=== PATIENT | female | born 1995 | race Hispanic/Latino ===

== ENCOUNTER 2024-05-19 13:41 | Emergency (ER) | payer OTHER ==
[2024-05-19 14:52] LABS: Absolute Eosinophils 0.2 K/uL (0-0.5); Absolute Lymphocytes (CBC) 1.9 K/uL (0.7-4.9); Absolute Monocytes 0.7 K/uL (0.1-1.3); Absolute Neutrophil 2.3 K/uL (1.8-8.0); Basophils % 0.6 % (0-1.3); Hemoglobin 12.6 g/dL (12.0-15.0); Lymphocytes % 37.3 % (15.3-44.8); MCH 29.8 pg (27.0-35.0); MCHC 33.1 g/dL (32.0-36.0); MPV 8.5 fL (7.6-11.3); Neutrophils % 45.1 % (41.7-73.7); Platelets 347 thou/uL (152-406); RBC Red Blood Cell Count 4.22 M/uL (3.86-4.86); Red Cell Distribution Width 13.2 % (12.1-15.2)
[2024-05-19 15:03] LABS: Specific Gravity 1.032 (1.005-1.030)
[2024-05-19 15:05] LABS: Specific Gravity > 1.030 (1.005-1.030); Urine Bacteria <20 /HPF (<20); Urine Bilirubin NEGATIVE (Negative); Urine Blood 2+ (Negative); Urine Clarity Turbid (Clear); Urine Color Yellow (Yellow); Urine Culture Reflex Order NOT NEEDED; Urine Glucose NEGATIVE (Negative); Urine Ketones NEGATIVE (Negative); Urine Micro Reflex YN NO BILL MICROSCOPIC; Urine Mucus 4+ /HPF (None Seen); Urine Nitrite NEGATIVE (Negative); Urine Protein TRACE (Negative); Urine RBC <5 /HPF (None Seen); Urine Urobilinogen Normal (Normal); Urine WBC <5 /HPF (<5)
[2024-05-19 15:13] LABS: Anion Gap 5.2 mEq/L (5.0-15.0); Potassium 4.2 mEq/L (3.5-5.1)
--- NOTE | 2024-05-19 15:16 | RAD REPORT ---
EXAM: Transvaginal OB HISTORY: ABD PAIN COMPARISON: None TECHNIQUE: Multiple grayscale and color Doppler images were obtained in a transvaginal pelvic ultraso und. Spectral analysis of the Doppler waveforms of the ovaries were performed. FINDINGS: UTERUS: Tiny cystic structure located eccentrically in the endometrium measuring 2 mm. No pole or yolk sac. No free fluid is seen in the pelvis. RIGHT OVARY: 3 cm simple appearing cyst in the right ovary. Vascular flow is present. The right ovary is enlarged as a result of the cyst. LEFT OVARY: Normal flow without focal mass. IMPRESSION: Tiny 2 mm intrauterine saclike structure is indeterminate. This could represent a normal first trimes ter however short-term follow-up ultrasound and correlation with beta hCG is recommended. Bilateral ovarian blood flow.
--- NOTE | 2024-05-19 15:42 | EDPHYS ---
Physician Documentation [facility] Name: Sabrina Rosado Age: 28 yrs Sex: Female : 1995 Arrival Date: 05/19/2024 Time: 13:41 Bed 16 Private MD: ED Physician Danielle Celestin HPI: 05/19 14:42 This 28 yrs old Female presents to ER via Ambulatory with complaints of sp3 Vaginal Bleeding. 14:42 Four 8-year-old female presents with continued vaginal bleeding since April 29 on sp3 her last period and right-sided abdominal pain. She denies . She denies any other medical history. Review of systems negative for bleeding anywhere else, headache, chest pain, shortness of breath, abdominal pain, vomiting, diarrhea, rash, or any other signs or symptoms on ROS at this time.. 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 - Infectious Disease History:: Denies. - Social history:: Smoking status: Patient denies any tobacco usage or history of. ROS: 14:42 Constitutional: Negative for fever, chills, and weight loss, Eyes: Negative for injury, sp3 pain, redness, and discharge, ENT: Negative for injury, pain, and discharge, Neck: Negative for injury, pain, and swelling, Cardiovascular: Negative for chest pain, palpitations, and edema, Respiratory: Negative for shortness of breath, cough, wheezing, and pleuritic chest pain, Back: Negative for injury and pain, MS/Extremity: Negative for injury and deformity, Skin: Negative for injury, rash, and discoloration, Neuro: Negative for headache, weakness, numbness, tingling, and seizure, Psych: Negative for depression, anxiety, suicide ideation, homicidal ideation, and hallucinations, Allergy/Immunology: Negative for hives, rash, and allergies, Endocrine: Negative for neck swelling, polydipsia, polyuria, polyphagia, and marked weight changes, Hematologic/Lymphatic: Negative for swollen nodes, abnormal bleeding, and unusual bruising, 14:42 All other systems are negative, Exam: 14:42 Constitutional: This is a well developed, well nourished patient who is awake, alert, sp3 and in no acute distress. Head/Face: Normocephalic, atraumatic. Eyes: Pupils equal round and reactive to light, extra-ocular motions intact. Lids and lashes normal. Conjunctiva and sclera are non-icteric and not injected. Cornea within normal limits. Periorbital areas with no swelling, redness, or edema. Neck: Trachea midline, no thyromegaly or masses palpated, and no cervical lymphadenopathy. Supple, full range of motion without nuchal rigidity, or vertebral point tenderness. No Meningismus. Chest/axilla: Normal chest wall appearance and motion. Nontender with no deformity. No lesions are appreciated. Cardiovascular: Regular rate and rhythm with a normal S1 and S2. No gallops, murmurs, or rubs. Normal PMI, no JVD. No pulse deficits. Respiratory: Lungs have equal breath sounds bilaterally, clear to auscultation and percussion. No rales, rhonchi or wheezes noted. No increased work of breathing, no retractions or nasal flaring. Back: No spinal tenderness. No costovertebral tenderness. Full range of motion. Skin: Warm, dry with normal turgor. Normal color with no rashes, no lesions, and no evidence of cellulitis. MS/ Extremity: Pulses equal, no cyanosis. Neurovascular intact. Full, normal range of motion. Neuro: Awake and alert, GCS 15, oriented to person, place, time, and situation. Cranial nerves II-XII grossly intact. Motor strength 5/5 in all extremities. Sensory grossly intact. Cerebellar exam normal. Normal gait. Psych: Awake, alert, with orientation to person, place and time. Behavior, mood, and affect are within normal limits. 14:42 Abdomen/GI: Right lower quadrant abdominal pain to palpation with vaginal bleeding consistent with menses., Vital Signs: 14:05 Pulse 84; Resp 17; Temp 97.3; Pulse Ox 100% ; Weight 80.74 kg; Pain 0/10; ll1 15:00 BP 124 / 72; Pulse 68; Resp 18; Pulse Ox 100% on R/A; kj2 16:00 BP 123 / 78; Pulse 80; Resp 20; Temp 98; Pulse Ox 100% on R/A; kj2 14:05 Pain Scale: Adult ll1 MDM: 14:02 Medical Screening Exam initiated sp3 14:43 Data reviewed: vital signs, nurses notes, lab test result(s), radiologic studies. ED sp3 course: 28-year-old female with right lower quadrant abdominal pain and vaginal bleeding. Differential diagnosis includes and related pathology including ectopic if positive, other ovarian pathology, metromenorrhagia, or other GI pathology although I am not highly suspicious of this. Workup will include ultrasound pelvic transvaginal, test and general labs. If workup negative patient to follow-up with PCP and/or STOCK PREPARER.. 15:39 ED course: Full workup negative including US and labs. Will d/c home with STOCK PREPARER sp3 follow-up. . 05/19 14:06 Order name: UAM; Complete Time: 15:28 sp3 05/19 14:06 Order name: HCG-Quantitative; Complete Time: 15:28 sp3 05/19 14:08 Order name: Test, Urine; Complete Time: 15:28 sp3 05/19 14:12 Order name: Basic Metabolic Panel; Complete Time: 15:28 sp3 05/19 14:12 Order name: CBC with Diff; Complete Time: 15:28 sp3 05/19 14:12 Order name: US Transvaginal Ob; Complete Time: 15:28 sp3 05/19 14:12 Order name: IV Saline Lock; Complete Time: 16:11 sp3 05/19 14:12 Order name: Labs collected and sent; Complete Time: 16:11 sp3 05/19 14:12 Order name: NPO; Complete Time: 16:11 sp3 Administered Medications: No medications were administered Disposition Summary: 05/19/24 15:42 Discharge Ordered Notes: Location: Home sp3 Condition: Stable sp3 Diagnosis - Vaginal bleeding sp3 Followup: sp3 - With: hCeri Rinaldi MD - When: Upon discharge from the Emergency Department - Reason: Recheck today's complaints Discharge Instructions: - Discharge Summary Sheet sp3 - Abnormal Uterine Bleeding, [id number] sp3 Forms: - Medication Reconciliation Form sp3 - Antibiotic Education sp3 - Prescription Opioid Use sp3 - Patient Portal Instructions sp3 - Leadership Thank You Letter sp3 Signatures: Dispatcher [employer] Flor Sherwood RN RN ll1 Danielle Celestin MD MD sp3 Talisha Larson, RN RN kj2
--- NOTE | 2024-05-19 15:42 | ER ---
Nurse's Notes [facility] Name: Sabrina Rosado Age: 28 yrs Sex: Female : 1995 Arrival Date: 05/19/2024 Time: 13:41 Bed 16 Private MD: Diagnosis: Vaginal bleeding Presentation: 05/19 14:05 Chief complaint: Patient states: Vaginal bleeding, denies pain/fever. [place] speaking. ll1 Coronavirus screen: Client denies travel out of the [place] in the last 14 days. At this time, the client does not indicate any symptoms associated with coronavirus-19. Ebola Screen: Patient denies travel to an Ebola-affected area in the 21 days before illness onset. Initial Sepsis Screen: Does the patient meet any 2 criteria? No. Patient's initial sepsis screen is negative. Does the patient have a suspected source of infection? No. Patient's initial sepsis screen is negative. Risk Assessment: Do you want to hurt yourself or someone else? Patient reports no desire to harm self or others. 14:05 Method Of Arrival: Ambulatory 1 14:05 Acuity: DEMIAN 3 ll1 14:46 Onset of symptoms was April 29, 2024. kj2 Triage Assessment: 14:05 General: Appears in no apparent distress. Behavior is calm, cooperative, appropriate jb4 for age. Pain: Denies pain. : Reports vaginal bleeding that is. 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 - Infectious Disease History:: Denies. - Social history:: Smoking status: Patient denies any tobacco usage or history of. Screenin:00 [facility] ED Fall Risk Assessment (Adult) History of falling in the last 3 months, kj2 including since admission No falls in past 3 months (0 pts) Confusion or Disorientation No (0 pts) Intoxicated or Sedated No (0 pts) Impaired Gait No (0 pts) Mobility Assist Device Used No (0 pt) Altered Elimination No (0 pt) Score/Fall Risk Level 0 - 2 = Low Risk Maintained a safe environment, Hourly rounding (assess needs \T\ fall precautionary measures) done. Abuse screen: Denies threats or abuse. Denies injuries from another. Nutritional screening: No deficits noted. Tuberculosis screening: No symptoms or risk factors identified. Assessment: 14:00 General: Appears in no apparent distress. Behavior is calm, appropriate for age. Pain: kj2 Complains of pain in right pelvic area Pain currently is 5 out of 10 on a pain scale. Neuro: Level of Consciousness is awake, alert, obeys commands, Oriented to person, place, time, situation. Cardiovascular: Patient's skin is warm and dry. Respiratory: Airway is patent Respiratory effort is even, unlabored. GI: No signs and/or symptoms were reported involving the gastrointestinal system. : Reports vaginal bleeding that is with clots. 15:00 Reassessment: Patient appears in no apparent distress at this time. Patient and/or kj2 family updated on plan of care and expected duration. Pain level reassessed. Patient is alert, oriented x 3, equal unlabored respirations, skin warm/dry/pink. 16:00 Reassessment: Patient appears in no apparent distress at this time. Patient and/or kj2 family updated on plan of care and expected duration. Pain level reassessed. Patient is alert, oriented x 3, equal unlabored respirations, skin warm/dry/pink. Vital Signs: 14:05 Pulse 84; Resp 17; Temp 97.3; Pulse Ox 100% ; Weight 80.74 kg; Pain 0/10; ll1 15:00 BP 124 / 72; Pulse 68; Resp 18; Pulse Ox 100% on R/A; kj2 16:00 BP 123 / 78; Pulse 80; Resp 20; Temp 98; Pulse Ox 100% on R/A; kj2 14:05 Pain Scale: Adult ll1 ED Course: 13:47 Patient arrived in ED. im 13:48 Danielle Celestin MD is Attending Physician. sp3 14:00 Arm band placed on Patient placed in an exam room, on a stretcher. ll1 14:00 Patient has correct armband on for positive identification. Bed in low position. Call kj2 light in reach. 14:00 Inserted saline lock: 20 gauge in left antecubital area, using aseptic technique. Blood kj2 collected. Flushed with 10 mL NS. 14:06 Triage completed. ll1 14:22 Talisha Larson, RN is Primary Nurse. kj2 14:27 Radiology exam delayed due to test not completed at this time. aa4 14:46 Provided Education on: call light. kj2 14:58 US Transvaginal Ob In Process Unspecified. EDMS 15:39 Cheri Rinaldi MD is Referral Physician. sp3 16:10 No provider procedures requiring assistance completed. IV discontinued, intact, kj2 bleeding controlled, No redness/swelling at site. Pressure dressing applied. Administered Medications: No medications were administered Medication: 14:44 VIS not applicable for this client. kj2 Outcome: 15:42 Discharge ordered by . sp3 16:10 Discharged to home kj2 16:10 Condition: stable 16:10 Discharge instructions given to patient, Instructed on discharge instructions, follow up and referral plans. Demonstrated understanding of instructions, follow-up care, 16:13 Patient left the ED. kj2 Signatures: Dispatcher [employer] EDMS Wilma Manzanares aa4 Jarvis Jimenez RN RN jb4 Flor Juares RN RN ll1 Danielle Celestin MD MD sp3 Ashely Bentley Krystal, RN RN kj2
[2024-05-20 03:02] VITALS: BP 123/78; TEMP 98; O2SAT 100
== END 2024-05-19 16:13 | disposition home or self-care (01) ==
LOC: ER 13:41
DX: N93.9 Abnormal uterine and vaginal bleeding, unspecified (principal)
CPT/HCPCS: 36415; 76817; 80048; 81001; 81025; 84702; 85025; 99284

== ENCOUNTER 2025-01-30 20:45 | Emergency (ER) | payer OTHER ==
--- OUTSIDE RECORDS SUMMARY | 2025-01-30 20:57 | XMS REPORT | Continuity of Care Document ---
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 Ordering Clinician Indication Dosage Frequency Signature (SIG) Comments Components Source cephalexin 500 mg capsule -24 00:00: 00 Yes 1mg Zaire Castro metronidazo le 500 mg tablet 5-22 00:00: 00 Yes 1mg Zaire Castro metronidazo le 500 mg tablet 2-15 00:00: 00 Yes 1mg Zaire Castro medroxyprog esterone 10 mg tablet 1-17 00:00: 00 Yes 1mg Zaire Castro Vital Signs Vital Name Observation Time Observation Value Comments S sharif BP Systolic 2025-01-02 14:26:00 95 mm[Hg] Step hen Rashad Castro BP Diastolic 2025-01-02 14:26:00 66 mm[Hg] Mann phen Rashad Castro Weight Measured 2025-01-02 14:26:00 192.00 pounds Zaire Castro Height Measured 2025-01-02 14:26:00 67.50 inches Zaire Castro Body Temperature 2025-01-02 14:26:00 97.50 degrees Zaire Castro Heart Rate 2025-01-02 14:26:00 93.00 /min Jannie en Rashad Castro Respiratory Rate 2025-01-02 14:26:00 18.00 /min Zaire Castro Respiratory Rate 2024-12-05 13:36:00 17.00 /min Zaire F Matthew BP Systolic 2024-12-05 13:36:00 107 mm[Hg] Step hen F Matthew BP Diastolic 2024-12-05 13:36:00 71 mm[Hg] Mann phen F Matthew Weight Measured 2024-12-05 13:36:00 186.00 pounds Zaire F Matthew Height Measured 2024-12-05 13:36:00 67.50 inches Zaire F Matthew Body Temperature 2024-12-05 13:36:00 97.40 degrees Zaire F Matthew Heart Rate 2024-12-05 13:36:00 89.00 /min Jannie en F Matthew BP Systolic 2024-11-07 16:07:00 94 mm[Hg] Step hen F Matthew BP Diastolic 2024-11-07 16:07:00 68 mm[Hg] Mann phen F Matthew Weight Measured 2024-11-07 16:07:00 181.20 pounds Zaire F Matthew Height Measured 2024-11-07 16:07:00 67.50 inches Zaire F Matthew Body Temperature 2024-11-07 16:07:00 97.70 degrees Zaire F Matthew Heart Rate 2024-11-07 16:07:00 84.00 /min Jannie en F Matthew Respiratory Rate 2024-11-07 16:07:00 18.00 /min Zaire F Matthew BP Systolic 2024-09-20 17:16:00 116 mm[Hg] Step hen F Matthew BP Diastolic 2024-09-20 17:16:00 78 mm[Hg] Mann phen F Matthew Weight Measured 2024-09-20 17:16:00 178.40 pounds Zaire F Matthew Height Measured 2024-09-20 17:16:00 67.20 inches Zaire F Matthew Body Temperature 2024-09-20 17:16:00 97.00 degrees Zaire F Matthew Heart Rate 2024-09-20 17:16:00 75.00 /min Jannie en F Matthew Respiratory Rate 2024-09-20 17:16:00 18.00 /min Zaire F Matthew BP Systolic 2024-09-17 14:04:00 106 mm[Hg] Step hen F Matthew BP Diastolic 2024-09-17 14:04:00 75 mm[Hg] Mann phen F Matthew Weight Measured 2024-09-17 14:04:00 178.20 pounds Zaire F Matthew Height Measured 2024-09-17 14:04:00 67.20 inches Zaire F Matthew Body Temperature 2024-09-17 14:04:00 98.30 degrees Zaire F Matthew Heart Rate 2024-09-17 14:04:00 74.00 /min Jannie en F Matthew Respiratory Rate 2024-09-17 14:04:00 18.00 /min Zaire F Matthew BP Systolic 2024-06-17 14:57:00 105 mm[Hg] Step hen F Matthew BP Diastolic 2024-06-17 14:57:00 74 mm[Hg] Mann phen F Matthew Weight Measured 2024-06-17 14:57:00 180.00 pounds Zaire F Matthew Height Measured 2024-06-17 14:57:00 67.20 inches Zaire F Matthew Body Temperature 2024-06-17 14:57:00 98.40 degrees Zaire F Matthew Heart Rate 2024-06-17 14:57:00 79.00 /min Jannie en F Matthew Respiratory Rate 2024-06-17 14:57:00 18.00 /min Zaire F Matthew Respiratory Rate 2024-05-20 14:40:00 Zaire F Matthew BP Systolic 2024-05-20 14:40:00 105 mm[Hg] Step hen F Matthew BP Diastolic 2024-05-20 14:40:00 74 mm[Hg] Mann phen F Matthew Weight Measured 2024-05-20 14:40:00 174.80 pounds Zaire F Matthew Height Measured 2024-05-20 14:40:00 67.20 inches Zaire F Matthew Body Temperature 2024-05-20 14:40:00 97.80 degrees Zaire F Matthew Heart Rate 2024-05-20 14:40:00 80.00 /min Jannie en F Matthew Encounters Start Date/Time End Date/Time Encounter Type Admission Type Attending [facility] Facility Care Department Encounter ID Source 2025-01-02 14:12:44 2025-01-02 14:12:44 Outpatient [facility] [id number] Zaire F Matthew 2025-01-02 00:00:00 2025-01-02 00:00:00 Outpatient Visit [facility] [id number] Zaire Castro 2024-12-07 10:11:48 2024-12-07 10:11:48 Outpatient [facility] [id number] Zaire Castro 2024-12-05 13:31:14 2024-12-05 13:31:14 Outpatient [facility] [id number] Zaire Castro 2024-12-05 00:00:00 2024-12-05 00:00:00 Outpatient Visit [facility] [id number] Zaire Castro 2024-11-18 14:45:30 2024-11-18 14:45:30 Outpatient [facility] [id number] Zaire Castro 2024-11-16 08:49:36 2024-11-16 08:49:36 Outpatient SFA [facility] [id number] Zaire Castro 2024-11-07 15:54:00 2024-11-07 15:54:00 Outpatient S[facility] [id number] Zaire Castro 2024-11-07 00:00:00 2024-11-07 00:00:00 Outpatient Visit [facility] [id number] Zaire Castro 2024-10-06 13:30:57 2024-10-06 13:30:57 Outpatient S[facility] [id number] Zaire Solorzano Matthew 2024-09-27 09:31:28 2024-09-27 09:31:28 Outpatient S[facility] [id number] Zaire Solorzano Matthew 2024-09-26 16:16:38 2024-09-26 16:16:38 Outpatient SFA SFA [id number] Zaire Castro 2024-09-21 09:49:44 2024-09-21 09:49:44 Outpatient S[facility] [id number] Zaire Solorzano Matthew 2024-09-20 17:04:53 2024-09-20 17:04:53 Outpatient SFA [facility] [id number] Zaire Castro 2024-09-20 00:00:00 2024-09-20 00:00:00 Outpatient Visit [facility] [id number] Zaire Castro 2024-09-17 13:50:13 2024-09-17 13:50:13 Outpatient [facility] [id number] Zaire Castro 2024-09-17 00:00:00 2024-09-17 00:00:00 Outpatient Visit [facility] [id number] Zaire Castro 2024-06-17 14:50:50 2024-06-17 14:50:50 Outpatient [facility] [id number] Zaire Castro 2024-06-17 00:00:00 2024-06-17 00:00:00 Outpatient Visit [facility] [id number] Zaire Castro 2024-05-20 15:03:54 2024-05-20 15:03:54 Outpatient [facility] [id number] Zaire Castro 2024-05-20 00:00:00 2024-05-20 00:00:00 Outpatient Visit [facility] [id number] Zaire Castro Results Test Description Test Time Test Comments Results Result Co mments Source Zaire Ryan [id number] 00:00:00* Test Item Value Reference Range Interpretation Comme nts Risk for ONTD (test code = 26472-8) <1 IN 5000 Age Risk Down Syndrome (test code = 59896-3) 1 IN 933 NATHALIE Down Syndrome Risk (test code = 93138-7) 1 IN 2 NATHALIE Trisomy 18 Risk (test co de = 22301-6) <1 IN 5000 AFP, Serum (test code = 1834-1) 23.6 ng/mL AFP MoM (test code = 09404-0) 0.66 Estriol, Free (test code = 2250-9) 2.05 ng/mL Estriol MoM (test code = 94373-5) 1.33 hCG, Serum (test code = 48776-7) 29.80 IU/mL hCG MoM (test code = 39221-6) 1.28 Inhibin A, Dimeric (test cod e = 27051-0) 175 pg/mL Inhibin A MoM (test code = 44758-1) 1.28 Calc'd Gestational Age (test code = 04485-5) 17.7 weeks Maternal Weight (test code = 3142-7) 181 lbs Est'd Date of Delivery (test code = 85051-2) 04/23/2025 EMILI Determined by (test code = 32295-8) ULTRASOUND Mother's Ethnic Origin (test code = 87916-9) Number of Fetuses (test code = 70968-8) 1 Insulin Depend Diabetic (tim t code = 75321-0) NO Repeat Specimen (test code = 65707-0) NO Hx Of Neural Tube Defects (t est code = 83071-2) NO Prev Down Synd (te st code = 83492-6) NO Donor Egg (test code = 12266-6) NO Donor Age: Egg Retrieval (te st code = 86757-2) NOT GIVEN Cigarette smoker (test code = 57233-2) NO Result of IVF (tim t code = 90262-8) NOT GIVEN Zaire Lo 14 ([employer] STANDARD)2024-09-28 00:00:00* Test Item Value Reference Range Interpretation Comme nts Report Summary (test code = REPORT_SUMMARY) Negative Alpha-Thalassemia (test code = 55652) Negative Beta-Hemoglobinopathies (tim t code = 79607) Negative Jill Disease (test code = 46498) Negative Cystic Fibrosis (test code = 78789) Negative Duchenne/Lomeli Muscular Dys trophy (X-linked) (test code = 27687) Negative Familial Dysautonomia (test code = 37377) Negative Fragile X Syndrome (X-linked ) (test code = 05098) Negative Galactosemia (test code = 20190) Negative Gaucher Disease (test code = 89264) Negative Medium Chain Acyl-CoA Dehydr ogenase Deficiency (test code = 58436) Negative Polycystic Kidney Disease, Autosomal Recessive (test code = 38826) Negative Tpsjj-Fynlu-Soaou Syndrome ( test code = 83680) Negative Spinal Muscular Atrophy (tim t code = 60063) Negative Jose-Sachs Disease (test code = 84808) Negative Panel Notes (test code = CS_PANEL_NOTES) See Notes Report Note (test code = REPORT_NOTE) See Notes Footnotes (test code = FOOTNOTES) See Notes PDF Report (test code = EMBEDDED_PDF) PDF Zaire Díaz NIPT [id number] 00:00:00* Test Item Value Reference Range Interpretation Comme nts Report Summary (test code = REPORT_SUMMARY) LOW RISK Report Note (test code = REPORT_NOTE) See Notes Trisomy 13 Age-Based Risk Text (test code = NPT_T13_AGE_BASED_RISK_TEX T) 1/6,930 (0.01%) Trisomy 13 Risk Score Text (test code = NPT_T13_RISK_SCORE_TEXT) <1/10,000 (<0.01%) Trisomy 13 Result Text (test code = NPT_T13_RESULT_TEXT) Low Risk Trisomy 18 Age-Based Risk Text (test code = NPT_T18_AGE_BASED_RISK_TEX T) 1/2,200 (0.05%) Trisomy 18 Risk Score Text (test code = NPT_T18_RISK_SCORE_TEXT) <1/10,000 (<0.01%) Trisomy 18 Result Text (test code = NPT_T18_RESULT_TEXT) Low Risk Trisomy 21 Age-Based Risk Text (test code = NPT_T21_AGE_BASED_RISK_TEX T) 1/946 (0.11%) Trisomy 21 Risk Score Text (test code = NPT_T21_RISK_SCORE_TEXT) <1/10,000 (<0.01%) Trisomy 21 Result Text (test code = NPT_T21_RESULT_TEXT) Low Risk Monosomy X Age-Based Risk Text (test code = NPT_X_AGE_BASED_RISK_TEXT) 1/255 (0.39%) Monosomy X Risk Score Text (test code = NPT_X_RISK_SCORE_TEXT) <1/10,000 (<0.01%) Monosomy X Result Text (test code = NPT_X_RESULT_TEXT) Low Risk 22q11.2 Deletion Syndrome Population-Based Risk Text (test code = NPT_22Q_POP_BASED_RISK_TEX T) 2,000 22q11.2 Deletion Syndrome Risk Score Text (test code = NPT_22Q_RISK_SCORE_TEXT) 12,000 22q11.2 Deletion Syndrome Result Text (test code = NPT_22Q_RESULT_TEXT) Low Risk Prader-Willi Syndrome Population-Based Risk Text (test code = NPT_PRWI_POP_BASED_RISK_TE XT) 10,000 Prader-Willi Syndrome Risk Score Text (test code = NPT_PRWI_RISK_SCORE_TEXT) 05/16,800 Prader-Willi Syndrome Result Text (test code = NPT_PRWI_RESULT_TEXT) Low Risk Angelman Syndrome Population-Based Risk Text (test code = NPT_ANGL_POP_BASED_RISK_TE XT) 12,000 Angelman Syndrome Risk Score Text (test code = NPT_ANGL_RISK_SCORE_TEXT) 05/19,600 Angelman Syndrome Result Text (test code = NPT_ANGL_RESULT_TEXT) Low Risk Cri-du-chat Syndrome Population-Based Risk Text (test code = NPT_CRI_POP_BASED_RISK_TEX T) 20,000 Cri-du-chat Syndrome Risk Score Text (test code = NPT_CRI_RISK_SCORE_TEXT) 57,100 Cri-du-chat Syndrome Result Text (test code = NPT_CRI_RESULT_TEXT) Low Risk 1p36 Deletion Syndrome Population-Based Risk Text (test code = NPT_1P36_POP_BASED_RISK_TE XT) 5,000 1p36 Deletion Syndrome Risk Score Text (test code = NPT_1P36_RISK_SCORE_TEXT) 05/15,400 1p36 Deletion Syndrome Result Text (test code = NPT_1P36_RESULT_TEXT) Low Risk Triploidy Result Text (test code = NPT_TRI_RESULT_TEXT) Low Risk Gender of Fetus (test code = GENDER_OF_FETUS) Female Fraction (test code = FETAL_FRACTION_STRING) 7.4% Footnotes (test code = FOOTNOTES) See Notes PDF Report (test code = EMBEDDED_PDF) PDF Zaire Lo 14 ([employer] STANDARD)2024-09-28 00:00:00* Test Item Value Reference Range Interpretation Comme nts Report Summary (test code = REPORT_SUMMARY) Negative Alpha-Thalassemia (test code = 29591) Negative Beta-Hemoglobinopathies (tim t code = 74573) Negative Jill Disease (test code = 33240) Negative Cystic Fibrosis (test code = 41384) Negative Duchenne/Lomeli Muscular Dys trophy (X-linked) (test code = 97758) Negative Familial Dysautonomia (test code = 86889) Negative Fragile X Syndrome (X-linked ) (test code = 71883) Negative Galactosemia (test code = 72577) Negative Gaucher Disease (test code = 86033) Negative Medium Chain Acyl-CoA Dehydr ogenase Deficiency (test code = 16186) Negative Polycystic Kidney Disease, Autosomal Recessive (test code = 26278) Negative Hvpaw-Yiesb-Ccrpv Syndrome ( test code = 80032) Negative Spinal Muscular Atrophy (tim t code = 22231) Negative Jose-Sachs Disease (test code = 98958) Negative Panel Notes (test code = CS_PANEL_NOTES) See Notes Report Note (test code = REPORT_NOTE) See Notes Footnotes (test code = FOOTNOTES) See Notes PDF Report (test code = EMBEDDED_PDF) PDF Zaire Díaz NIPT [id number] 00:00:00* Test Item Value Reference Range Interpretation Comme nts Report Summary (test code = REPORT_SUMMARY) LOW RISK Report Note (test code = REPORT_NOTE) See Notes Trisomy 13 Age-Based Risk Text (test code = NPT_T13_AGE_BASED_RISK_TEX T) 16,930 (0.01%) Trisomy 13 Risk Score Text (test code = NPT_T13_RISK_SCORE_TEXT) <1/10,000 (<0.01%) Trisomy 13 Result Text (test code = NPT_T13_RESULT_TEXT) Low Risk Trisomy 18 Age-Based Risk Text (test code = NPT_T18_AGE_BASED_RISK_TEX T) 12,200 (0.05%) Trisomy 18 Risk Score Text (test code = NPT_T18_RISK_SCORE_TEXT) <1/10,000 (<0.01%) Trisomy 18 Result Text (test code = NPT_T18_RESULT_TEXT) Low Risk Trisomy 21 Age-Based Risk Text (test code = NPT_T21_AGE_BASED_RISK_TEX T) 1/946 (0.11%) Trisomy 21 Risk Score Text (test code = NPT_T21_RISK_SCORE_TEXT) <1/10,000 (<0.01%) Trisomy 21 Result Text (test code = NPT_T21_RESULT_TEXT) Low Risk Monosomy X Age-Based Risk Text (test code = NPT_X_AGE_BASED_RISK_TEXT) 1/255 (0.39%) Monosomy X Risk Score Text (test code = NPT_X_RISK_SCORE_TEXT) <1/10,000 (<0.01%) Monosomy X Result Text (test code = NPT_X_RESULT_TEXT) Low Risk 22q11.2 Deletion Syndrome Population-Based Risk Text (test code = NPT_22Q_POP_BASED_RISK_TEX T) 1/2,000 22q11.2 Deletion Syndrome Risk Score Text (test code = NPT_22Q_RISK_SCORE_TEXT) 1/12,000 22q11.2 Deletion Syndrome Result Text (test code = NPT_22Q_RESULT_TEXT) Low Risk Prader-Willi Syndrome Population-Based Risk Text (test code = NPT_PRWI_POP_BASED_RISK_TE XT) 1/10,000 Prader-Willi Syndrome Risk Score Text (test code = NPT_PRWI_RISK_SCORE_TEXT) 113,800 Prader-Willi Syndrome Result Text (test code = NPT_PRWI_RESULT_TEXT) Low Risk Angelman Syndrome Population-Based Risk Text (test code = NPT_ANGL_POP_BASED_RISK_TE XT) 1/12,000 Angelman Syndrome Risk Score Text (test code = NPT_ANGL_RISK_SCORE_TEXT) 1/16,600 Angelman Syndrome Result Text (test code = NPT_ANGL_RESULT_TEXT) Low Risk Cri-du-chat Syndrome Population-Based Risk Text (test code = NPT_CRI_POP_BASED_RISK_TEX T) 1/20,000 Cri-du-chat Syndrome Risk Score Text (test code = NPT_CRI_RISK_SCORE_TEXT) 57,100 Cri-du-chat Syndrome Result Text (test code = NPT_CRI_RESULT_TEXT) Low Risk 1p36 Deletion Syndrome Population-Based Risk Text (test code = NPT_1P36_POP_BASED_RISK_TE XT) 5,000 1p36 Deletion Syndrome Risk Score Text (test code = NPT_1P36_RISK_SCORE_TEXT) 05/15,400 1p36 Deletion Syndrome Result Text (test code = NPT_1P36_RESULT_TEXT) Low Risk Triploidy Result Text (test code = NPT_TRI_RESULT_TEXT) Low Risk Gender of Fetus (test code = GENDER_OF_FETUS) Female Fraction (test code = FETAL_FRACTION_STRING) 7.4% Footnotes (test code = FOOTNOTES) See Notes PDF Report (test code = EMBEDDED_PDF) PDF Zaire Solorzano [facility] NIPT [id number] 00:00:00* Test Item Value Reference Range Interpretation Comme nts Report Summary (test code = REPORT_SUMMARY) LOW RISK Report Note (test code = REPORT_NOTE) See Notes Trisomy 13 Age-Based Risk Text (test code = NPT_T13_AGE_BASED_RISK_TEX T) 05/09,930 (0.01%) Trisomy 13 Risk Score Text (test code = NPT_T13_RISK_SCORE_TEXT) <1/10,000 (<0.01%) Trisomy 13 Result Text (test code = NPT_T13_RESULT_TEXT) Low Risk Trisomy 18 Age-Based Risk Text (test code = NPT_T18_AGE_BASED_RISK_TEX T) 12,200 (0.05%) Trisomy 18 Risk Score Text (test code = NPT_T18_RISK_SCORE_TEXT) <1/10,000 (<0.01%) Trisomy 18 Result Text (test code = NPT_T18_RESULT_TEXT) Low Risk Trisomy 21 Age-Based Risk Text (test code = NPT_T21_AGE_BASED_RISK_TEX T) 6 (0.11%) Trisomy 21 Risk Score Text (test code = NPT_T21_RISK_SCORE_TEXT) <1/10,000 (<0.01%) Trisomy 21 Result Text (test code = NPT_T21_RESULT_TEXT) Low Risk Monosomy X Age-Based Risk Text (test code = NPT_X_AGE_BASED_RISK_TEXT) 1/255 (0.39%) Monosomy X Risk Score Text (test code = NPT_X_RISK_SCORE_TEXT) <1/10,000 (<0.01%) Monosomy X Result Text (test code = NPT_X_RESULT_TEXT) Low Risk 22q11.2 Deletion Syndrome Population-Based Risk Text (test code = NPT_22Q_POP_BASED_RISK_TEX T) 1/2,000 22q11.2 Deletion Syndrome Risk Score Text (test code = NPT_22Q_RISK_SCORE_TEXT) 112,000 22q11.2 Deletion Syndrome Result Text (test code = NPT_22Q_RESULT_TEXT) Low Risk Prader-Willi Syndrome Population-Based Risk Text (test code = NPT_PRWI_POP_BASED_RISK_TE XT) 1/10,000 Prader-Willi Syndrome Risk Score Text (test code = NPT_PRWI_RISK_SCORE_TEXT) 113,800 Prader-Willi Syndrome Result Text (test code = NPT_PRWI_RESULT_TEXT) Low Risk Angelman Syndrome Population-Based Risk Text (test code = NPT_ANGL_POP_BASED_RISK_TE XT) 1/12,000 Angelman Syndrome Risk Score Text (test code = NPT_ANGL_RISK_SCORE_TEXT) 116,600 Angelman Syndrome Result Text (test code = NPT_ANGL_RESULT_TEXT) Low Risk Cri-du-chat Syndrome Population-Based Risk Text (test code = NPT_CRI_POP_BASED_RISK_TEX T) 1/20,000 Cri-du-chat Syndrome Risk Score Text (test code = NPT_CRI_RISK_SCORE_TEXT) 157,100 Cri-du-chat Syndrome Result Text (test code = NPT_CRI_RESULT_TEXT) Low Risk 1p36 Deletion Syndrome Population-Based Risk Text (test code = NPT_1P36_POP_BASED_RISK_TE XT) 1/5,000 1p36 Deletion Syndrome Risk Score Text (test code = NPT_1P36_RISK_SCORE_TEXT) 05/15,400 1p36 Deletion Syndrome Result Text (test code = NPT_1P36_RESULT_TEXT) Low Risk Triploidy Result Text (test code = NPT_TRI_RESULT_TEXT) Low Risk Gender of Fetus (test code = GENDER_OF_FETUS) Female Fraction (test code = FETAL_FRACTION_STRING) 7.4% Footnotes (test code = FOOTNOTES) See Notes PDF Report (test code = EMBEDDED_PDF) PDF Zaire Ovalleterry 14 ([employer] STANDARD)2024-09-28 00:00:00* Test Item Value Reference Range Interpretation Comme nts Report Summary (test code = REPORT_SUMMARY) Negative Alpha-Thalassemia (test code = 03155) Negative Beta-Hemoglobinopathies (tim t code = 61890) Negative Jill Disease (test code = 83378) Negative Cystic Fibrosis (test code = 86510) Negative Duchenne/Lomeli Muscular Dys trophy (X-linked) (test code = 39438) Negative Familial Dysautonomia (test code = 38739) Negative Fragile X Syndrome (X-linked ) (test code = 49544) Negative Galactosemia (test code = 47274) Negative Gaucher Disease (test code = 26463) Negative Medium Chain Acyl-CoA Dehydr ogenase Deficiency (test code = 59098) Negative Polycystic Kidney Disease, Autosomal Recessive (test code = 81360) Negative Owwfj-Pyxja-Wrdxt Syndrome ( test code = 51181) Negative Spinal Muscular Atrophy (tim t code = 35540) Negative Jose-Sachs Disease (test code = 64770) Negative Panel Notes (test code = CS_PANEL_NOTES) See Notes Report Note (test code = REPORT_NOTE) See Notes Footnotes (test code = FOOTNOTES) See Notes PDF Report (test code = EMBEDDED_PDF) PDF Zaire CastroCHLAMYDIA/N. GONORRHOEAE RNA, [id number] 00:00:00* Test Item Value Reference Range Interpretation Comme nts CHLAMYDIA TRACHOMATIS RNA, T MA, UROGENITAL (test code = 21729-0) NOT DETECTED NEISSERIA GONORRHOEAE RNA, T MA, UROGENITAL (test code = 41428-4) NOT DETECTED Zaire Solorzano MatthewHEPATITIS PANEL, [id number] 00:00:00* Test Item Value Reference Range Interpretation Comme nts HEPATITIS A AB, TOTAL (test code = 88809-6) REACTIVE HEPATITIS B SURFACE ANTIBODY QL (test code = 25518-2) NON-REACTIVE HEPATITIS B SURFACE ANTIGEN (test code = 5196-1) NON-REACTIVE CONFIRMATION (test code = 7905-3) DNR HEPATITIS B CORE AB TOTAL (t est code = 58784-4) NON-REACTIVE HEPATITIS C ANTIBODY (test c ode = 04352-7) NON-REACTIVE Zaire CastroRUBELLA ANTIBODY (IGM)2024-09-23 00:00:00* Test Item Value Reference Range Interpretation Comme nts RUBELLA ANTIBODY (IGM) (test code = 5335-5) <20.00 AU/mL Zaire CastroHEMOGLOBINOPATHY [id number] 00:00:00* Test Item Value Reference Range Interpretation Comme nts RED BLOOD CELL COUNT (test code = 789-8) 4.02 Million/uL HEMOGLOBIN (test code = 718-7) 12.0 g/dL HEMATOCRIT (test code = 4544-3) 38.7 % MCV (test code = 787-2) 96.3 fL MCH (test code = 785-6) 29.9 pg RDW (test code = 788-0) 13.0 % HEMOGLOBIN A (test code = 4546-8) 96.6 % HEMOGLOBIN F (test code = 4576-5) 0.7 % HEMOGLOBIN A2 (QUANT) (test code = 4551-8) 2.7 % HEMOGLOBIN S (test code = 4625-0) DNR % HEMOGLOBIN C (test code = 4563-3) DNR % HEMOGLOBIN E (test code = 4575-7) DNR % OTHER HEMOGLOBIN 2 (test cod e = 36307-9) DNR Zaire Solorzano AustinVARICELLA ZOSTER VIRUS ANTIBODY (IGG)2024-09-23 00:00:00* Test Item Value Reference Range Interpretation Comme nts VARICELLA ZOSTER VIRUS ANTIB RADHA (IGG) (test code = 5403-1) 7.01 S/CO Zaire CastroTHINPREP TIS PAP AND HPV mRNA E6/E7 REFLEX HPV 16,18/45 2024-09-23 00:00:00* Test Item Value Reference Range Interpretation Comme nts REPORT STATUS: (test code = 8251-1) DNR GENERAL CATEGORIZATION: (tim t code = 39522-8) DNR PATHOLOGIST: (test code = 50218-1) DNR HPV mRNA E6/E7 (test code = 12206-7) Not Detected Zaire CastroOBSTETRIC PANEL W/FOURTH GENERATION [id number] 00:00:00* Test Item Value Reference Range Interpretation Comme nts WHITE BLOOD CELL COUNT (test code = 6690-2) 7.0 Thousand/uL RED BLOOD CELL COUNT (test code = 789-8) 3.96 Million/uL HEMOGLOBIN (test code = 718-7) 12.0 g/dL HEMATOCRIT (test code = 4544-3) 36.9 % MCV (test code = 787-2) 93.2 fL MCH (test code = 785-6) 30.3 pg MCHC (test code = 786-4) 32.5 g/dL RDW (test code = 788-0) 12.5 % PLATELET COUNT (test code = 777-3) 250 Thousand/uL MPV (test code = 776-5) 12.2 fL ABSOLUTE NEUTROPHILS (test code = 751-8) 4410 cells/uL ABSOLUTE BAND NEUTROPHILS (test code = 17255-3) DNR cells/uL ABSOLUTE METAMYELOCYTES (test code = 48619-0) DNR cells/uL ABSOLUTE MYELOCYTES (test code = 72979-3) DNR cells/uL ABSOLUTE PROMYELOCYTES (test code = 58318-7) DNR cells/uL ABSOLUTE LYMPHOCYTES (test code = 731-0) 1722 cells/uL ABSOLUTE MONOCYTES (test code = 742-7) 714 cells/uL ABSOLUTE EOSINOPHILS (test code = 711-2) 112 cells/uL ABSOLUTE BASOPHILS (test code = 704-7) 42 cells/uL ABSOLUTE BLASTS (test code = 65821-8) DNR cells/uL ABSOLUTE NUCLEATED RBC (test code = 28590-6) DNR cells/uL NEUTROPHILS (test code = 770-8) 63 % BAND NEUTROPHILS (test code = 764-1) DNR % METAMYELOCYTES (test code = 740-1) DNR % MYELOCYTES (test code = 749-2) DNR % PROMYELOCYTES (test code = 783-1) DNR % LYMPHOCYTES (test code = 736-9) 24.6 % REACTIVE LYMPHOCYTES (test code = 95527-6) DNR % MONOCYTES (test code = 5905-5) 10.2 % EOSINOPHILS (test code = 713-8) 1.6 % BASOPHILS (test code = 706-2) 0.6 % BLASTS (test code = 709-6) DNR % NUCLEATED RBC (test code = 73328-7) DNR /100WBC COMMENT(S) (test code = 8251-1) DNR ANTIBODY SCREEN, RBC W/REFL ID, TITER AND AG (test code = 890-4) NO ANTIBODIES DETECTED ABO GROUP (test code = 883-9) A RH TYPE (test code = 08611-9) RH(D) POSITIVE RPR (DX) W/REFL TITER AND CONFIRMATORY TESTING (test code = 73565-8) NON-REACTIVE HEPATITIS B SURFACE ANTIGEN (test code = 5196-1) NON-REACTIVE CONFIRMATION (test code = 7905-3) DNR RUBELLA AB (IGG), IMMUNE STATUS (test code = 5334-8) 1.28 Index HIV AG/AB, 4TH GEN (test code = 46489-5) NON-REACTIVE Z[place] CastroCHLAMYDIA/N. GONORRHOEAE RNA, [id number] 00:00:00* Test Item Value Reference Range Interpretation Comme nts CHLAMYDIA TRACHOMATIS RNA, T MA, UROGENITAL (test code = 35513-9) NOT DETECTED NEISSERIA GONORRHOEAE RNA, T MA, UROGENITAL (test code = 73551-3) NOT DETECTED Zaire CastroHEPATITIS PANEL, [id number] 00:00:00* Test Item Value Reference Range Interpretation Comme nts HEPATITIS A AB, TOTAL (test code = 71093-0) REACTIVE HEPATITIS B SURFACE ANTIBODY QL (test code = 44644-2) NON-REACTIVE HEPATITIS B SURFACE ANTIGEN (test code = 5196-1) NON-REACTIVE CONFIRMATION (test code = 7905-3) DNR HEPATITIS B CORE AB TOTAL (t est code = 30277-3) NON-REACTIVE HEPATITIS C ANTIBODY (test c ode = 63023-3) NON-REACTIVE Zaire Solorzano AustinRUBELLA ANTIBODY (IGM)2024-09-23 00:00:00* Test Item Value Reference Range Interpretation Comme nts RUBELLA ANTIBODY (IGM) (test code = 5335-5) <20.00 AU/mL Zaire CastroHEMOGLOBINOPATHY [id number] 00:00:00* Test Item Value Reference Range Interpretation Comme nts RED BLOOD CELL COUNT (test code = 789-8) 4.02 Million/uL HEMOGLOBIN (test code = 718-7) 12.0 g/dL HEMATOCRIT (test code = 4544-3) 38.7 % MCV (test code = 787-2) 96.3 fL MCH (test code = 785-6) 29.9 pg RDW (test code = 788-0) 13.0 % HEMOGLOBIN A (test code = 4546-8) 96.6 % HEMOGLOBIN F (test code = 4576-5) 0.7 % HEMOGLOBIN A2 (QUANT) (test code = 4551-8) 2.7 % HEMOGLOBIN S (test code = 4625-0) DNR % HEMOGLOBIN C (test code = 4563-3) DNR % HEMOGLOBIN E (test code = 4575-7) DNR % OTHER HEMOGLOBIN 2 (test cod e = 52362-4) DNR Zaire CastroVARICELLA ZOSTER VIRUS ANTIBODY (IGG)2024-09-23 00:00:00* Test Item Value Reference Range Interpretation Comme [facility] VARICELLA ZOSTER VIRUS ANTIB RADHA (IGG) (test code = 5403-1) 7.01 S/CO Zaire CastroOBSTETRIC PANEL W/FOURTH GENERATION [id number] 00:00:00* Test Item Value Reference Range Interpretation Comme [facility] WHITE BLOOD CELL COUNT (test code = 6690-2) 7.0 Thousand/uL RED BLOOD CELL COUNT (test code = 789-8) 3.96 Million/uL HEMOGLOBIN (test code = 718-7) 12.0 g/dL HEMATOCRIT (test code = 4544-3) 36.9 % MCV (test code = 787-2) 93.2 fL MCH (test code = 785-6) 30.3 pg MCHC (test code = 786-4) 32.5 g/dL RDW (test code = 788-0) 12.5 % PLATELET COUNT (test code = 777-3) 250 Thousand/uL MPV (test code = 776-5) 12.2 fL ABSOLUTE NEUTROPHILS (test code = 751-8) 4410 cells/uL ABSOLUTE BAND NEUTROPHILS (test code = 33857-9) DNR cells/uL ABSOLUTE METAMYELOCYTES (test code = 17490-5) DNR cells/uL ABSOLUTE MYELOCYTES (test code = 71747-5) DNR cells/uL ABSOLUTE PROMYELOCYTES (test code = 97635-6) DNR cells/uL ABSOLUTE LYMPHOCYTES (test code = 731-0) 1722 cells/uL ABSOLUTE MONOCYTES (test code = 742-7) 714 cells/uL ABSOLUTE EOSINOPHILS (test code = 711-2) 112 cells/uL ABSOLUTE BASOPHILS (test code = 704-7) 42 cells/uL ABSOLUTE BLASTS (test code = 99582-0) DNR cells/uL ABSOLUTE NUCLEATED RBC (test code = 82992-7) DNR cells/uL NEUTROPHILS (test code = 770-8) 63 % BAND NEUTROPHILS (test code = 764-1) DNR % METAMYELOCYTES (test code = 740-1) DNR % MYELOCYTES (test code = 749-2) DNR % PROMYELOCYTES (test code = 783-1) DNR % LYMPHOCYTES (test code = 736-9) 24.6 % REACTIVE LYMPHOCYTES (test code = 75974-5) DNR % MONOCYTES (test code = 5905-5) 10.2 % EOSINOPHILS (test code = 713-8) 1.6 % BASOPHILS (test code = 706-2) 0.6 % BLASTS (test code = 709-6) DNR % NUCLEATED RBC (test code = 05374-4) DNR /100WBC COMMENT(S) (test code = 8251-1) DNR ANTIBODY SCREEN, RBC W/REFL ID, TITER AND AG (test code = 890-4) NO ANTIBODIES DETECTED ABO GROUP (test code = 883-9) A RH TYPE (test code = 28666-7) RH(D) POSITIVE RPR (DX) W/REFL TITER AND CONFIRMATORY TESTING (test code = 31506-4) NON-REACTIVE HEPATITIS B SURFACE ANTIGEN (test code = 5196-1) NON-REACTIVE CONFIRMATION (test code = 7905-3) DNR RUBELLA AB (IGG), IMMUNE STATUS (test code = 5334-8) 1.28 Index HIV AG/AB, 4TH GEN (test code = 13104-5) NON-REACTIVE Zaire CastroTHINPREP TIS PAP AND HPV mRNA E6/E7 REFLEX HPV 16,18/45 2024-09-23 00:00:00* Test Item Value Reference Range Interpretation Comme nts REPORT STATUS: (test code = 8251-1) DNR GENERAL CATEGORIZATION: (tim t code = 93817-4) DNR PATHOLOGIST: (test code = 32991-5) DNR HPV mRNA E6/E7 (test code = 40725-2) Not Detected Zaire CastroCHLAMYDIA/N. GONORRHOEAE RNA, [id number] 00:00:00* Test Item Value Reference Range Interpretation Comme nts CHLAMYDIA TRACHOMATIS RNA, T MA, UROGENITAL (test code = 77996-4) NOT DETECTED NEISSERIA GONORRHOEAE RNA, T MA, UROGENITAL (test code = 00141-9) NOT DETECTED Zaire CastroHEPATITIS PANEL, [id number] 00:00:00* Test Item Value Reference Range Interpretation Comme nts HEPATITIS A AB, TOTAL (test code = 53743-6) REACTIVE HEPATITIS B SURFACE ANTIBODY QL (test code = 19625-6) NON-REACTIVE HEPATITIS B SURFACE ANTIGEN (test code = 5196-1) NON-REACTIVE CONFIRMATION (test code = 7905-3) DNR HEPATITIS B CORE AB TOTAL (t est code = 32078-9) NON-REACTIVE HEPATITIS C ANTIBODY (test c ode = 90817-2) NON-REACTIVE Zaire CastroRUBELLA ANTIBODY (IGM)2024-09-23 00:00:00* Test Item Value Reference Range Interpretation Comme nts RUBELLA ANTIBODY (IGM) (test code = 5335-5) <20.00 AU/mL Zaire CastroHEMOGLOBINOPATHY [id number] 00:00:00* Test Item Value Reference Range Interpretation Comme nts RED BLOOD CELL COUNT (test code = 789-8) 4.02 Million/uL HEMOGLOBIN (test code = 718-7) 12.0 g/dL HEMATOCRIT (test code = 4544-3) 38.7 % MCV (test code = 787-2) 96.3 fL MCH (test code = 785-6) 29.9 pg RDW (test code = 788-0) 13.0 % HEMOGLOBIN A (test code = 4546-8) 96.6 % HEMOGLOBIN F (test code = 4576-5) 0.7 % HEMOGLOBIN A2 (QUANT) (test code = 4551-8) 2.7 % HEMOGLOBIN S (test code = 4625-0) DNR % HEMOGLOBIN C (test code = 4563-3) DNR % HEMOGLOBIN E (test code = 4575-7) DNR % OTHER HEMOGLOBIN 2 (test cod e = 18315-5) DNR Zaire CastroVARICELLA ZOSTER VIRUS ANTIBODY (IGG)2024-09-23 00:00:00* Test Item Value Reference Range Interpretation Comme nts VARICELLA ZOSTER VIRUS ANTIB RADHA (IGG) (test code = 5403-1) 7.01 S/CO Zaire CastroOBSTETRIC PANEL W/FOURTH GENERATION [id number] 00:00:00* Test Item Value Reference Range Interpretation Comme nts WHITE BLOOD CELL COUNT (test code = 6690-2) 7.0 Thousand/uL RED BLOOD CELL COUNT (test code = 789-8) 3.96 Million/uL HEMOGLOBIN (test code = 718-7) 12.0 g/dL HEMATOCRIT (test code = 4544-3) 36.9 % MCV (test code = 787-2) 93.2 fL MCH (test code = 785-6) 30.3 pg MCHC (test code = 786-4) 32.5 g/dL RDW (test code = 788-0) 12.5 % PLATELET COUNT (test code = 777-3) 250 Thousand/uL MPV (test code = 776-5) 12.2 fL ABSOLUTE NEUTROPHILS (test code = 751-8) 4410 cells/uL ABSOLUTE BAND NEUTROPHILS (test code = 34927-6) DNR cells/uL ABSOLUTE METAMYELOCYTES (test code = 31778-7) DNR cells/uL ABSOLUTE MYELOCYTES (test code = 28774-1) DNR cells/uL ABSOLUTE PROMYELOCYTES (test code = 83069-7) DNR cells/uL ABSOLUTE LYMPHOCYTES (test code = 731-0) 1722 cells/uL ABSOLUTE MONOCYTES (test code = 742-7) 714 cells/uL ABSOLUTE EOSINOPHILS (test code = 711-2) 112 cells/uL ABSOLUTE BASOPHILS (test code = 704-7) 42 cells/uL ABSOLUTE BLASTS (test code = 00681-6) DNR cells/uL ABSOLUTE NUCLEATED RBC (test code = 11927-1) DNR cells/uL NEUTROPHILS (test code = 770-8) 63 % BAND NEUTROPHILS (test code = 764-1) DNR % METAMYELOCYTES (test code = 740-1) DNR % MYELOCYTES (test code = 749-2) DNR % PROMYELOCYTES (test code = 783-1) DNR % LYMPHOCYTES (test code = 736-9) 24.6 % REACTIVE LYMPHOCYTES (test code = 62506-1) DNR % MONOCYTES (test code = 5905-5) 10.2 % EOSINOPHILS (test code = 713-8) 1.6 % BASOPHILS (test code = 706-2) 0.6 % BLASTS (test code = 709-6) DNR % NUCLEATED RBC (test code = 60356-4) DNR /100WBC COMMENT(S) (test code = 8251-1) DNR ANTIBODY SCREEN, RBC W/REFL ID, TITER AND AG (test code = 890-4) NO ANTIBODIES DETECTED ABO GROUP (test code = 883-9) A RH TYPE (test code = 14142-6) RH(D) POSITIVE RPR (DX) W/REFL TITER AND CONFIRMATORY TESTING (test code = 90585-0) NON-REACTIVE HEPATITIS B SURFACE ANTIGEN (test code = 5196-1) NON-REACTIVE CONFIRMATION (test code = 7905-3) DNR RUBELLA AB (IGG), IMMUNE STATUS (test code = 5334-8) 1.28 Index HIV AG/AB, 4TH GEN (test code = 19021-4) NON-REACTIVE Zaire Solorzano AustinTHINPREP TIS PAP AND HPV mRNA E6/E7 REFLEX HPV 16,18/45 2024-09-23 00:00:00* Test Item Value Reference Range Interpretation Comme nts REPORT STATUS: (test code = 8251-1) DNR GENERAL CATEGORIZATION: (tim t code = 31137-3) DNR PATHOLOGIST: (test code = 58571-1) DNR HPV mRNA E6/E7 (test code = 89243-3) Not Detected Zaire Solorzano AustinCULTURE, URINE, [id number] 00:00:00* Test Item Value Reference Range Interpretation Comme nts CULTURE, URINE, ROUTINE (tim t code = 630-4) SEE NOTE Zaire F AustinTEST IN QUESTION- AMBIGUOUS ORDER [ADDED]2024-09-22 00:00:00* Test Item Value Reference Range Interpretation Comme nts RESOLUTION: (test code = ) DNR Zaire Solorzano AustinCULTURE, URINE, [id number] 00:00:00* Test Item Value Reference Range Interpretation Comme nts CULTURE, URINE, ROUTINE (tim t code = 630-4) SEE NOTE Zaire Solorzano AustinTEST IN QUESTION- AMBIGUOUS ORDER [ADDED]2024-09-22 00:00:00* Test Item Value Reference Range Interpretation Comme nts RESOLUTION: (test code = ) DNR Zaire Solorzano AustinCULTURE, URINE, [id number] 00:00:00* Test Item Value Reference Range Interpretation Comme nts CULTURE, URINE, ROUTINE (tim t code = 630-4) SEE NOTE Zaire Solorzano AustinTEST IN QUESTION- AMBIGUOUS ORDER [ADDED]2024-09-22 00:00:00* Test Item Value Reference Range Interpretation Comme nts RESOLUTION: (test code = ) DNR Zaire [id number] 00:00:00* Test Item Value Reference Range Interpretation Comme nts CHLAMYDIA TRACHOMATIS (test code = 85438-0) Negative ESCHERICHIA COLI (test code = 97698-1) Positive HAEMOPHILUS DUCREYI (test co de = 83834-1) Negative MEGASPHAERA TYPE 1 (test cod e = 40445-0) Positive MEGASPHAERA TYPE 2 (test cod e = 70202-4D) Negative NEISSERIA GONORRHOEAE (test code = 16935-4) Negative PREVOTELLA BIVIA (test code = No code9) Negative TREPONEMA PALLIDUM (test cod e = 62475-0) Negative ATOPOBIUM VAGINAE (test code = 33605-6) Positive ENTEROCOCCUS FAECALIS (test code = 84451-7) Negative GARDNERELLA VAGINALIS (test code = 17441-0) Positive LACTOBACILLUS CRISPATUS (tim t code = 32437-4L) Negative LACTOBACILLUS GASSERI (test code = 22992-2) Negative LACTOBACILLUS INERS (test co de = 34233-4J) Negative LACTOBACILLUS JENSENII (test code = 77754-1Z) Negative MOBILUNCUS CURTISII (test co de = 81263-0D) Negative MOBILUNCUS MULIERIS (test co de = 32742-0) Positive STAPHYLOCOCCUS AUREUS (test code = 46806-2) Negative STREPTOCOCCUS AGALACTIAE (te st code = 58243-2) Negative MYCOPLASMA GENITALIUM (test code = 25938-9) Negative MYCOPLASMA HOMINIS (test cod e = 91542-7M) Negative UREAPLASMA UREALYTICUM (test code = 93113-5T) Negative TRICHOMONAS VAGINALIS (test code = 12261OQ) Negative DIDI ALBICANS (test code = 76981-2) Negative DIDI AURIS (test code = 00216-3) Negative DIDI GLABRATA (test code = 15561-7) Negative DIDI KRUSEI (test code = 51771-1) Negative DIDI LUSITANIAE (test cod e = 05062-4) Negative DIDI PARAPSILOSIS (test c ode = 67827-7) Negative DIDI TROPICALIS (test cod e = 38572-9) Negative BACTEROIDES FRAGILIS (test c ode = 810905-2) Negative BVAB-2 (test code = 23128-6) Negative HSV-1 (HERPES SIMPLEX) (test code = 73708-5) Negative HSV-2 (HERPES SIMPLEX) (test code = P0120) Negative Zaire [id number] 00:00:00* Test Item Value Reference Range Interpretation Comme nts CHLAMYDIA TRACHOMATIS (test code = 21405-5) Negative ESCHERICHIA COLI (test code = 16838-2) Positive HAEMOPHILUS DUCREYI (test co de = 12560-9) Negative MEGASPHAERA TYPE 1 (test cod e = 63980-7) Positive MEGASPHAERA TYPE 2 (test cod e = 19342-8J) Negative NEISSERIA GONORRHOEAE (test code = 47170-7) Negative PREVOTELLA BIVIA (test code = No code9) Negative TREPONEMA PALLIDUM (test cod e = 85531-8) Negative ATOPOBIUM VAGINAE (test code = 29617-1) Positive ENTEROCOCCUS FAECALIS (test code = 35271-2) Negative GARDNERELLA VAGINALIS (test code = 67005-6) Positive LACTOBACILLUS CRISPATUS (tim t code = 33010-3L) Negative LACTOBACILLUS GASSERI (test code = 38387-0) Negative LACTOBACILLUS INERS (test co de = 33101-9E) Negative LACTOBACILLUS JENSENII (test code = 00665-1R) Negative MOBILUNCUS CURTISII (test co de = 92072-7D) Negative MOBILUNCUS MULIERIS (test co de = 88046-2) Positive STAPHYLOCOCCUS AUREUS (test code = 06577-1) Negative STREPTOCOCCUS AGALACTIAE (te st code = 10762-4) Negative MYCOPLASMA GENITALIUM (test code = 46277-4) Negative MYCOPLASMA HOMINIS (test cod e = 60654-3W) Negative UREAPLASMA UREALYTICUM (test code = 37305-9E) Negative TRICHOMONAS VAGINALIS (test code = 86910BV) Negative DIDI ALBICANS (test code = 50783-2) Negative DIDI AURIS (test code = 98455-4) Negative DIDI GLABRATA (test code = 91311-7) Negative DIDI KRUSEI (test code = 39314-4) Negative DIDI LUSITANIAE (test cod e = 78567-8) Negative DIDI PARAPSILOSIS (test c ode = 46192-7) Negative DIDI TROPICALIS (test cod e = 20562-7) Negative BACTEROIDES FRAGILIS (test c ode = 482165-1) Negative BVAB-2 (test code = 82463-0) Negative HSV-1 (HERPES SIMPLEX) (test code = 67986-7) Negative HSV-2 (HERPES SIMPLEX) (test code = P0120) Negative Zaire CastroCcatycMalir8427-83-60 00:00:00* Test Item Value Reference Range Interpretation Comme nts CHLAMYDIA TRACHOMATIS (test code = 68114-2) Negative ESCHERICHIA COLI (test code = 65785-9) Positive HAEMOPHILUS DUCREYI (test co de = 20910-8) Negative MEGASPHAERA TYPE 1 (test cod e = 86288-2) Positive MEGASPHAERA TYPE 2 (test cod e = 22942-4C) Negative NEISSERIA GONORRHOEAE (test code = 43142-8) Negative PREVOTELLA BIVIA (test code = No code9) Negative TREPONEMA PALLIDUM (test cod e = 96832-9) Negative ATOPOBIUM VAGINAE (test code = 47016-3) Positive ENTEROCOCCUS FAECALIS (test code = 38512-9) Negative GARDNERELLA VAGINALIS (test code = 68067-4) Positive LACTOBACILLUS CRISPATUS (tim t code = 20638-4Y) Negative LACTOBACILLUS GASSERI (test code = 56704-7) Negative LACTOBACILLUS INERS (test co de = 27581-2O) Negative LACTOBACILLUS JENSENII (test code = 01660-9C) Negative MOBILUNCUS CURTISII (test co de = 91567-6S) Negative MOBILUNCUS MULIERIS (test co de = 98961-7) Positive STAPHYLOCOCCUS AUREUS (test code = 33462-2) Negative STREPTOCOCCUS AGALACTIAE (te st code = 90062-1) Negative MYCOPLASMA GENITALIUM (test code = 56964-1) Negative MYCOPLASMA HOMINIS (test cod e = 31467-8D) Negative UREAPLASMA UREALYTICUM (test code = 90603-4S) Negative TRICHOMONAS VAGINALIS (test code = 15858RP) Negative DIDI ALBICANS (test code = 36260-2) Negative DIDI AURIS (test code = 88481-6) Negative DIDI GLABRATA (test code = 78693-3) Negative DIDI KRUSEI (test code = 04750-1) Negative DIDI LUSITANIAE (test cod e = 40040-8) Negative DIDI PARAPSILOSIS (test c ode = 38878-2) Negative DIDI TROPICALIS (test cod e = 47307-7) Negative BACTEROIDES FRAGILIS (test c ode = 351834-4) Negative BVAB-2 (test code = 71427-8) Negative HSV-1 (HERPES SIMPLEX) (test code = 35876-3) Negative HSV-2 (HERPES SIMPLEX) (test code = P0120) Negative Zaire CastroYfmkxePnddc6358-85-22 00:00:00* Test Item Value Reference Range Interpretation Comme nts CHLAMYDIA TRACHOMATIS (test code = 50681-8) Negative ESCHERICHIA COLI (test code = 20935-6) Positive HAEMOPHILUS DUCREYI (test co de = 56143-1) Negative MEGASPHAERA TYPE 1 (test cod e = 94206-2) Positive MEGASPHAERA TYPE 2 (test cod e = 26921-6W) Negative NEISSERIA GONORRHOEAE (test code = 79812-7) Negative PREVOTELLA BIVIA (test code = No code9) Negative TREPONEMA PALLIDUM (test cod e = 69127-8) Negative ATOPOBIUM VAGINAE (test code = 71024-3) Positive ENTEROCOCCUS FAECALIS (test code = 02106-3) Negative GARDNERELLA VAGINALIS (test code = 67593-6) Positive LACTOBACILLUS CRISPATUS (tim t code = 41773-0Y) Negative LACTOBACILLUS GASSERI (test code = 27148-4) Negative LACTOBACILLUS INERS (test co de = 93705-7N) Negative LACTOBACILLUS JENSENII (test code = 79092-1Z) Negative MOBILUNCUS CURTISII (test co de = 89333-3R) Negative MOBILUNCUS MULIERIS (test co de = 55135-3) Positive STAPHYLOCOCCUS AUREUS (test code = 33735-9) Negative STREPTOCOCCUS AGALACTIAE (te st code = 73523-0) Negative MYCOPLASMA GENITALIUM (test code = 28260-8) Negative MYCOPLASMA HOMINIS (test cod e = 02110-1X) Negative UREAPLASMA UREALYTICUM (test code = 43257-4N) Negative TRICHOMONAS VAGINALIS (test code = 26744AH) Negative DIDI ALBICANS (test code = 26206-2) Negative DIDI AURIS (test code = 89746-3) Negative DIDI GLABRATA (test code = 56925-9) Negative DIDI KRUSEI (test code = 52963-0) Negative DIDI LUSITANIAE (test cod e = 07549-2) Negative DIDI PARAPSILOSIS (test c ode = 40468-9) Negative DIDI TROPICALIS (test cod e = 11178-7) Negative BACTEROIDES FRAGILIS (test c ode = 120833-4) Negative BVAB-2 (test code = 25480-8) Negative HSV-1 (HERPES SIMPLEX) (test code = 80001-3) Negative HSV-2 (HERPES SIMPLEX) (test code = P0120) Negative Zaire Solorzano AustinVAGINAL PATHOGENS DNA [id number] 13:23:17* Test Item Value Reference Range Interpretation Comme nts DIDI SPECIES (test code = 87150) NEGATIVE NEGATIVE G. VAGINALIS (test code = 34776) POSITIVE NEGATIVE A T. VAGINALIS (test code = 07221) NEGATIVE NEGATIVE Note: The [facility] ir VPIII Microbial Identification Testis a DNA probe test intended for use in the detectionand identification of Didi species, Gardnerellavaginalis and Trichomonas vaginalis nucleic acid. UNLESS OTHERWISE INDICATED, ALL TESTING PERFORMED AT [facility] [address] [place] [address] INSTRUMENT AND CONTROLS TECHNICIAN: ERROL GARCIA M.D. CLIA NUMBER [id number] [facility] [place]. [id number] VAGINAL PATHOGENS DNA [id number] 00:00:00* Test Item Value Reference Range Interpretation Comme nts DIDI SPECIES (test code = 98055) NEGATIVE G. VAGINALIS (test code = 12635) POSITIVE T. VAGINALIS (test code = 65081) NEGATIVE Zaire CastroVAGINAL PATHOGENS DNA [id number] 00:00:00* Test Item Value Reference Range Interpretation Comme nts DIDI SPECIES (test code = 92106) NEGATIVE G. VAGINALIS (test code = 68064) POSITIVE T. VAGINALIS (test code = 26417) NEGATIVE Zaire Solorzano OdessaVAGINAL PATHOGENS DNA [id number] 00:00:00* Test Item Value Reference Range Interpretation Comme nts DIDI SPECIES (test code = 82407) NEGATIVE G. VAGINALIS (test code = 70719) POSITIVE T. VAGINALIS (test code = 82774) NEGATIVE Zaire CastroVAGINAL PATHOGENS DNA [id number] 00:00:00* Test Item Value Reference Range Interpretation Comme nts DIDI SPECIES (test code = 76981) NEGATIVE G. VAGINALIS (test code = 61235) POSITIVE T. VAGINALIS (test code = 32347) NEGATIVE Zaire CastroVAGINAL PATHOGENS DNA [id number] 00:00:00* Test Item Value Reference Range Interpretation Comme nts DIDI SPECIES (test code = 53793) NEGATIVE G. VAGINALIS (test code = 48883) POSITIVE T. VAGINALIS (test code = 82301) NEGATIVE Zaire Solorzano OdessaVAGINAL PATHOGENS DNA [id number] 00:00:00* Test Item Value Reference Range Interpretation Comme nts DIDI SPECIES (test code = 38132) NEGATIVE G. VAGINALIS (test code = 07625) POSITIVE T. VAGINALIS (test code = 28011) NEGATIVE Zaire Rashad Matthew Notes Date/Time Note Provider Source Zaire Elder [facility]2025-08-04 00:00:00 [facility]2025-07-07 00:00:00 [facility]2025-05-20 00:00:00 [facility]2025-05-17 00:00:00 [facility]2025-02-14 00:00:00 [facility]2025-01-17 00:00:00 [facility]
--- NOTE | 2025-01-30 22:33 | RAD REPORT ---
EXAM:OB Limited CLINICAL HISTORY: with abdominal pain status post fall TECHNIQUE: Limited OB ultrasound performed FINDINGS: Single live intrauterine in cephalic presentation. Placenta anterior. No subchorionic/retroplacental bleed. Cardiac activity 147 bpm. Amniotic fluid is within normal limits. Femur length 5 cm. Cervix 4.6 cm. Right and left adnexa unremarkable IMPRESSION: Single live intrauterine in cephalic presentation Estimated gestational age 27 weeks 0 days EMILI 05/01/2025 No subchorionic/retroplacental bleed
--- NOTE | 2025-01-30 22:38 | ER ---
Nurse's Notes [facility] Name: Sabrina Rosado Age: 29 yrs Sex: Female : 1995 Arrival Date: 01/30/2025 Time: 20:45 Bed 2 Private MD: Diagnosis: 28 weeks gestation of Presentation: 01/30 21:03 Chief complaint: Patient states: PT STATES ON THURSDAY SHE SLIPPED WHILE CARRYING A br2 LAUNDRY BASKET, FALLING ON RIGHT HIP/ABDOMEN. PT IS 28 WEEKS PREG. PT DENIES AB PAIN OR VAGINAL BLEEDING. C/O INTERMITTENT LOWER BACK PAIN. PT IS STATES SHE HASN'T FELT BABY MOVE SINCE SHE FELL. OB DR[facility] ESSIE MONTILLA AT [facility]. Coronavirus screen: Client denies travel out of the [place] in the last 14 days. Ebola Screen: Patient denies exposure to infectious person. Initial Sepsis Screen: Does the patient meet any 2 criteria? No. Patient's initial sepsis screen is negative. Does the patient have a suspected source of infection? No. Patient's initial sepsis screen is negative. Risk Assessment: Do you want to hurt yourself or someone else? Patient reports no desire to harm self or others. Onset of symptoms was January 28, 2025. 21:03 Method Of Arrival: Ambulatory br2 21:03 Acuity: DEMIAN 3 br2 Triage Assessment: 21:08 General: Appears in no apparent distress. comfortable, Behavior is calm, cooperative. br2 Pain: Complains of pain in lumbar area Pain currently is 7 out of 10 on a pain scale. 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 - Infectious Disease History:: Denies. - Social history:: Smoking status: Patient denies any tobacco usage or history of. Patient/guardian denies using alcohol, street drugs. Screenin:19 [facility] ED Fall Risk Assessment (Adult) History of falling in the last 3 months, bm8 including since admission No falls in past 3 months (0 pts) Confusion or Disorientation No (0 pts) Intoxicated or Sedated No (0 pts) Impaired Gait No (0 pts) Mobility Assist Device Used No (0 pt) Altered Elimination No (0 pt) Score/Fall Risk Level 0 - 2 = Low Risk Oriented to surroundings, Maintained a safe environment, Educated pt \T\ family on fall prevention, incl call for assistance when getting out of bed, Assessed \T\ reinforced patient's understanding of fall precautions, Hourly rounding (assess needs \T\ fall precautionary measures) done, Used ambulatory aids as needed (educated on \T\ assisted with), Used gait belt as appropriate. Abuse screen: Denies threats or abuse. Nutritional screening: No deficits noted. Tuberculosis screening: No symptoms or risk factors identified. Assessment: 21:19 Reassessment: Patient appears in no apparent distress at this time. Patient and/or bm8 family updated on plan of care and expected duration. Pain level reassessed. Patient is alert, oriented x 3, equal unlabored respirations, skin warm/dry/pink. heart tones 160bpm Patient denies pain at this time. 22:41 General: Appears in no apparent distress. Behavior is calm, cooperative. Neuro: Level kd3 of Consciousness is awake, alert, obeys commands, Oriented to person, place, time, situation. Cardiovascular: Capillary refill < 3 seconds Patient's skin is warm and dry. Respiratory: Airway is patent Trachea midline Respiratory effort is even, unlabored, Respiratory pattern is regular, symmetrical. Vital Signs: 21:03 BP 139 / 67; Pulse 91; Resp 18; Temp 99.6; Pulse Ox 100% on R/A; Weight 87.09 kg; br2 Height 6 ft. 1 in. ; Pain 7/10; 21:44 BP 102 / 75; Pulse 94; Resp 20; Temp 99.5; Pulse Ox 100% ; Pain 0/10; bm8 22:41 BP 106 / 68; Pulse 92; Resp 16; Pulse Ox 98% on R/A; kd3 21:03 Body Mass Index 24.90 (87.09 kg, 187 cm) br2 21:03 Pain Scale: Adult br2 21:44 Pain Scale: Adult bm8 [place] Coma Score: 21:19 Eye Response: spontaneous(4). Motor Response: obeys commands(6). Verbal Response: bm8 oriented(5). Total: 15. 21:44 Eye Response: spontaneous(4). Motor Response: obeys commands(6). Verbal Response: bm8 oriented(5). Total: 15. ED Course: 20:50 Patient arrived in ED. mr 20:51 Milagros Emery FNP-C is [facility]. kb 20:51 Nain Stevens MD is Attending Physician. kb 21:08 Triage completed. br2 21:08 Arm band placed on. br2 21:16 Eloina Singh, RN is Primary Nurse. kd3 21:19 Patient has correct armband on for positive identification. Bed in low position. Call bm8 light in reach. Side rails up X 1. Adult w/ patient. Client placed on continuous cardiac and pulse oximetry monitoring. NIBP monitoring applied. Pulse ox on. NIBP on. Door closed. Noise minimized. Warm blanket given. Pillow given. Verbal reassurance given. Head of bed elevated. 21:41 US OB Limited In Process Unspecified. EDMS 22:40 No provider procedures requiring assistance completed. Patient did not have IV access kd3 during this emergency room visit. 22:41 Provided Education on: follow up . kd3 Administered Medications: No medications were administered Medication: 21:19 VIS not applicable for this client. bm8 Outcome: 22:37 Discharge ordered by . kb 22:41 Discharged to home ambulatory, kd3 22:41 Condition: stable 22:41 Discharge instructions given to patient, Instructed on discharge instructions, follow up and referral plans. Demonstrated understanding of instructions, follow-up care, 22:42 Patient left the ED. kd3 Signatures: Dispatcher [employer] EDFL Milagros Emery FNP-C FNP-Cande Lawson, Reg Reg mr Eloina Singh, RN RN kd3 Dakota Robertson, RN RN bm8 Tanisha Mar, RN RN br2
--- NOTE | 2025-01-30 22:38 | EDPHYS ---
Physician Documentation [facility] Name: Sabrina Rosado Age: 29 yrs Sex: Female : 1995 Arrival Date: 01/30/2025 Time: 20:45 Bed 2 Private MD: ED Physician Nain Stevens HPI: 01/30 20:58 This 29 yrs old Female presents to ER via Unassigned with complaints of 28 wks kb fall. 20:58 Patient is a 29-year-old female who is 28 weeks and presents because she has kb not felt the baby move since Thursday night after she fell onto her right side. Denies any pain. Denies any vaginal bleeding. States she only came in because she has not felt the baby move. States she was carrying a basket of laundry, tripped and fell Thursday night.. 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 - Infectious Disease History:: Denies. - Social history:: Smoking status: Patient denies any tobacco usage or history of. Patient/guardian denies using alcohol, street drugs. ROS: 20:58 Constitutional: As per HPI kb Exam: 20:58 Constitutional: This is a well developed, well nourished patient who is awake, alert, kb and in no acute distress. Head/Face: Normocephalic, atraumatic. ENT: Moist Mucous membranes Cardiovascular: Regular rate Respiratory: Respirations even and unlabored. No increased work of breathing. Talking in full sentences Skin: Warm, dry with normal turgor. Normal color. MS/ Extremity: Pulses equal, no cyanosis. Neurovascular intact. Full, normal range of motion. Neuro: Awake and alert, GCS 15, oriented to person, place, time, and situation. 20:58 Abdomen/GI: Inspection: gravid appearance, is noted, Bowel sounds: normal, Palpation: abdomen is soft and non-tender, Vital Signs: 21:03 BP 139 / 67; Pulse 91; Resp 18; Temp 99.6; Pulse Ox 100% on R/A; Weight 87.09 kg; br2 Height 6 ft. 1 in. ; Pain 7/10; 21:44 BP 102 / 75; Pulse 94; Resp 20; Temp 99.5; Pulse Ox 100% ; Pain 0/10; bm8 22:41 BP 106 / 68; Pulse 92; Resp 16; Pulse Ox 98% on R/A; kd3 21:03 Body Mass Index 24.90 (87.09 kg, 187 cm) br2 21:03 Pain Scale: Adult br2 21:44 Pain Scale: Adult bm8 Claud[place] Coma Score: 21:19 Eye Response: spontaneous(4). Motor Response: obeys commands(6). Verbal Response: bm8 oriented(5). Total: 15. 21:44 Eye Response: spontaneous(4). Motor Response: obeys commands(6). Verbal Response: bm8 oriented(5). Total: 15. MDM: 20:51 Medical Screening Exam initiated kb 22:36 Differential diagnosis: demise, contusion, person with feared health complaint. kb Data reviewed: vital signs, nurses notes. Counseling: I had a detailed discussion with the patient and/or guardian regarding the historical points, exam findings, and any diagnostic results supporting the discharge/admit diagnosis, radiology results, the need for outpatient follow up, a family practitioner, to return to the emergency department if symptoms worsen or persist or if there are any questions or concerns that arise at home. 01/30 20:58 Order name: US OB Limited; Complete Time: 22:35 kb Administered Medications: No medications were administered Disposition Summary: 01/30/25 22:37 Discharge Ordered Notes: Location: Home kb Condition: Stable kb Diagnosis - 28 weeks gestation of kb Followup: kb - With: Emergency Department - When: As needed - Reason: Worsening of condition Followup: kb - With: Private Physician - When: 2 - 3 days - Reason: Recheck today's complaints, Continuance of care, Re-evaluation by your physician Discharge Instructions: - Discharge Summary Sheet kb - Preventing Injuries During , [id number] kb Forms: - Medication Reconciliation Form kb - Antibiotic Education kb - Prescription Opioid Use kb - Patient Portal Instructions kb - Leadership Thank You Letter kb Signatures: Dispatcher [employer] Milagros Perez FNP-C FNP-Tanisha San, RN RN br2 Corrections: (The following items were deleted from the chart) 22:38 22:37 23 weeks gestation of kb kb
[2025-01-30 22:47] VITALS: TEMP 99.5
[2025-01-30 22:49] VITALS: BP 106/68; O2SAT 98
== END 2025-01-30 22:42 | disposition home or self-care (01) ==
LOC: ER 20:45
DX: O26.892 Other specified pregnancy related conditions, second trimester (principal); W01.0XXA Fall on same level from slipping, tripping and stumbling without subsequent striking against object, initial encounter; Z3A.28 28 weeks gestation of pregnancy
CPT/HCPCS: 76815; 99283